=== PATIENT | female | born 1960 | race Caucasian/White ===

== ENCOUNTER 2020-08-18 14:13 | Outpatient (REF) | payer OTHER, SELFPAY ==
--- NOTE | 2020-08-18 | MM_ITS ---
EXAMINATION: MM SCREENING DIGITAL BREAST TOMOSYNTHESIS, BILATERAL CLINICAL INFORMATION: Screening. Asymptomatic. The lifetime risk of breast cancer based on the Tyrer-Cuzick Model is 9%. COMPARISON: Mammography: 05/15/2018, 07/17/2015 TECHNIQUE: Digital breast tomosynthesis is performed in both the craniocaudal and mediolateral oblique views along with computer-aided detection (CAD). Synthesized 2D images are generated from the tomosynthesis. FINDINGS: There are scattered areas of fibroglandular density (ACR BI-RADS breast composition Category b). There are no significant masses, abnormal calcifications, or other abnormalities. Parenchymal pattern is similar to prior studies. No significant changes. Skin contours are smooth. IMPRESSION: No mammographic evidence of malignancy. ASSESSMENT: BI-RADS 1: Negative RECOMMENDATION: Routine annual mammography screening. This patient's information was entered into a reminder system with a target due date for their next mammogram.
== END 2020-08-18 14:14 | disposition home or self-care (01) ==
LOC: HO.MAMMO 14:13
PROVIDERS: PCP Family Medicine; Visit Provider Family Medicine
DX: Z12.31 Encounter for screening mammogram for malignant neoplasm of breast (principal)
CPT/HCPCS: 77063; 77067

== ENCOUNTER 2020-10-19 14:29 | Outpatient (REF) | payer OTHER, SELFPAY ==
[2020-10-19 15:20] LABS: COVID-19 Test Negative (Negative)
== END 2020-10-19 14:30 | disposition home or self-care (01) ==
LOC: HO.LAB 14:29
PROVIDERS: Visit Provider Internal Medicine
DX: Z20.828 Contact with and (suspected) exposure to other viral communicable diseases (principal)
CPT/HCPCS: 87635; C9803

== ENCOUNTER 2020-11-19 15:15 | Outpatient (REF) | payer OTHER, SELFPAY ==
[2020-11-19 15:50] LABS: COVID-19 Test Negative (Negative); IDNOW Serial# 55D5AD1C
== END 2020-11-19 15:16 | disposition home or self-care (01) ==
LOC: HO.LAB 15:15
PROVIDERS: Visit Provider Internal Medicine
DX: Z20.822 Contact with and (suspected) exposure to COVID-19 (principal)
CPT/HCPCS: 36415; 87635; C9803

== ENCOUNTER 2021-07-27 14:13 | Outpatient (REF) | payer OTHER, SELFPAY ==
--- NOTE | ~2021-07-27 | XR_ITS ---
EXAMINATION: XR LUMBOSACRAL SPINE CLINICAL INFORMATION: Contusion, back pain COMPARISON: None TECHNIQUE: Three views of the lumbosacral spine. FINDINGS: There is normal lumbar segmentation with 5 nonrib-bearing lumbar vertebrae and normal lumbar lordosis. There is accentuated superior endplate concavity at L3 of indeterminate age. There is often associated with osteopenia and endplate softening. Otherwise, there is no vertebral compression, no destructive process or spondylolisthesis. There are degenerative disc changes greatest at T11-T12, L1-L2, and L5-S1. There is facet degeneration greatest L4-S1. The SI joints and visualized sacrum are unremarkable. XR/XR lumbar spine 2-3V IMPRESSION: 1. Accentuated superior plate concavity L3 of indeterminate age. This may be related to chronic endplate softening in the setting of osteopenia. Otherwise no vertebral compression, spondylolisthesis, destructive process. 2. Degenerative disc changes greatest at T11-T12, L1-L2, and L5-S1. Facet degeneration greatest L4-S1.
== END 2021-07-27 14:14 | disposition home or self-care (01) ==
LOC: HO.HMGCX 14:13
PROVIDERS: PCP Family Medicine; Visit Provider Internal Medicine
DX: Z13.89 Encounter for screening for other disorder (principal)
CPT/HCPCS: 72100

== ENCOUNTER 2021-10-04 14:00 | Outpatient (RCR) | payer OTHER, SELFPAY ==
--- NOTE | 2021-08-12 20:31 | MHC.PT.EP ---
[facility] [place] Office [place] Office [place] Office [address] [place] [address] [phone] F: [phone] F: [phone] F: [phone] F: [phone] Physical Therapy Plan of Care Date of Evaluation: Date of Surgery: Diagnosis: Contusion of back wall of thorax. 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 Pt is deemed an appropriate candidate to receive skilled PT services in order to address her physical impairments to improve her functional ability. NOTE: Pt has unrelenting pain which is present at rest as well as + R percussion test; MD office will be consulted on possible US to rule out kidney issue; reports no change of BB activity. Frequency and Duration: The patient will be seen 2 x / wk x 5 wks. Short Term Goals: Initiate HEP. improve baseline pain with activity to < 5/10, initial 8/10. Penitentiary Goals: Pt will report sitting does not cause me pain ; initial: pain prevents me from sitting > 1 hour . Pt will be able to walk without pain; initial: pain prevents me from walking long distances . I with HEP. Treatment Plan: Modalities to reduce pain, spasms and effusion. Manual therapy to restore motion and function. Therapeutic exercise to improve strength and flexibility. Neuromuscular re-education for posture and balance. Therapeutic activities to return to functional activities of daily living. Electronically signed by: Mitesh Stevens PT. Please sign and return to therapist. Thank you for your referral.
--- NOTE | 2021-10-04 15:10 | MHC.PT.DC ---
[facility] [place] Office [place] Office [place] Office [address] [place] [address] [phone] F: [phone] F: [phone] F: [phone] F: [phone] Physical Therapy Discharge Report Diagnosis: Contusion of back wall of thorax. Date of Surgery: Date of Evaluation: 08/12/21 Date of Discharge: Treatments to Date: 9 Cancellations to Date: No Shows to Date: Discharge Status: Discharge Summary: Puja has been an active participant in her therapy in and out of the clinic. Though she persists with some LBP which is related to activity she has met all of her therapeutic goals, is I with her home program, and in agreement with DC at this time. Electronically signed by: Please sign and return to therapist. Thank you for your referral.
== END 2021-10-04 15:11 | disposition home or self-care (01) ==
LOC: HO.PTCHIC 14:00
PROVIDERS: PCP Family Medicine; Visit Provider Internal Medicine
DX: S20.229D Contusion of unspecified back wall of thorax, subsequent encounter (principal)
CPT/HCPCS: 97110; 97140; 97161; 97530

== ENCOUNTER 2022-11-01 15:17 | Outpatient (REF) | payer OTHER, SELFPAY ==
--- NOTE | ~2022-11-01 | MM_ITS ---
EXAMINATION: MM SCREENING DIGITAL BREAST TOMOSYNTHESIS, BILATERAL CLINICAL INFORMATION: Screening. Asymptomatic. The lifetime risk of breast cancer based on the Tyrer-Cuzick Model is 7%. COMPARISON: Mammography: 08/18/2020, 05/15/2018, 07/17/2015 TECHNIQUE: Digital breast tomosynthesis is performed in both the craniocaudal and mediolateral oblique views along with computer-aided detection (CAD). Synthesized 2D images are generated from the tomosynthesis. FINDINGS: There are scattered areas of fibroglandular density (ACR BI-RADS breast composition Category b). There are no significant masses, abnormal calcifications, or other abnormalities. Parenchymal pattern is similar to prior studies. There is no developing density or architectural abnormality. The axilla and skin contours are unremarkable. No significant changes. MM/MM tomosynthesis screening BI IMPRESSION: No mammographic evidence of malignancy. ASSESSMENT: BI-RADS 1: Negative RECOMMENDATION: Routine annual mammography screening. This patient's information was entered into a reminder system with a target due date for their next mammogram.
== END 2022-11-01 15:18 | disposition home or self-care (01) ==
LOC: HO.MAMMO 15:17
PROVIDERS: PCP Family Medicine; Visit Provider Family Medicine
DX: Z12.31 Encounter for screening mammogram for malignant neoplasm of breast (principal)
CPT/HCPCS: 77063; 77067

== ENCOUNTER 2023-01-18 07:40 | Outpatient (REF) | payer OTHER, SELFPAY ==
--- NOTE | ~2023-01-18 | XR_ITS ---
EXAMINATION: XR knee standing BI, XR knee RT 2V CLINICAL INFORMATION: Reason for Exam M25.561 - Pain in right knee COMPARISON: Right knee radiographs 12/05/2019 and left knee radiographs 12/05/2019 TECHNIQUE: Two views of the right knee and one view of the bilateral knees standing. FINDINGS: No acute fracture or dislocation. Mild degenerative changes of the knee with spurring of the tibial spines and small right medial and patellofemoral and left lateral compartment osteophytes, which on the right may be minimally progressed from prior. Small right suprapatellar joint effusion. XR/XR knee RT 2V IMPRESSION: Mild degenerative changes of the knees, on the right minimally progressed from prior. Small right suprapatellar joint effusion.
--- NOTE | ~2023-01-18 | XR_ITS ---
EXAMINATION: XR knee standing BI, XR knee RT 2V CLINICAL INFORMATION: Reason for Exam M25.561 - Pain in right knee COMPARISON: Right knee radiographs 12/05/2019 and left knee radiographs 12/05/2019 TECHNIQUE: Two views of the right knee and one view of the bilateral knees standing. FINDINGS: No acute fracture or dislocation. Mild degenerative changes of the knee with spurring of the tibial spines and small right medial and patellofemoral and left lateral compartment osteophytes, which on the right may be minimally progressed from prior. Small right suprapatellar joint effusion. XR/XR knee standing BI IMPRESSION: Mild degenerative changes of the knees, on the right minimally progressed from prior. Small right suprapatellar joint effusion.
== END 2023-01-18 07:41 | disposition home or self-care (01) ==
LOC: HO.HOSX 07:40
PROVIDERS: Visit Provider Physician Assistant
DX: M17.11 Unilateral primary osteoarthritis, right knee (principal)
CPT/HCPCS: 20610; 73560; 73565; J1040

== ENCOUNTER → 2023-02-01 14:52 | Outpatient (REF) | payer OTHER, SELFPAY ==
--- NOTE | 2023-02-01 14:58 | CA_ITS ---
Transthoracic Echocardiogram Patient (Last, First, Middle): Puja Thomas, Gender: Female Date of : 1960 Age: 63 Procedure Date: 02/01/2023 Procedure Type: Transthoracic Echocardiogram Location: OP Height: 170.18 cm Weight: 80.74 kg BSA: 1.92 m2 Heart Rate: 66 bpm BP: 132 / 72 mmHg Knitter Wire Mesh: SB Referring MD: Issac Humphreys MD Finisher Screwdown: Dhruv Taveras MD Symptoms: I34.0 NON RHEU MITRAL VALVE INSUFF, Study Quality: Adequate ECG Rhythm: Frequent atrial premature beats Conclusions: - 1. Low normal LV systolic function with LVEF of 50-55% with impaired relaxation filling pattern 2. 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 Normal RV systolic pressure 4. No gross pericardial effusion Findings Left Ventricle Normal left ventricular cavity size. There is normal left ventricular wall thickness. The left ventricular systolic function is low normal. The visually estimated ejection fraction is between 50-55%. Spectral Doppler is indicative of an impaired relaxation filling pattern. E/E prime ratio is <8, consistent with normal filling pressures. Evidence suggests grade I (mild) diastolic dysfunction. Peak LS is -16.9%, which is mildly reduced. Right Ventricle Normal right ventricular cavity size and systolic function. Atria The left atrium is normal in size. There is lipomatous hypertrophy of the interatrial septum. There is no evidence of interatrial shunt. The right atrium is normal in size. Aortic Valve There is mild calcification of the aortic valve. There is mild thickening of the aortic valve. There is no aortic valve stenosis. There is no aortic valve regurgitation. Mitral Valve There is moderate anterior and mild posterior mitral leaflet thickening. There is bowing of the anterior mitral leaflet without obvious prolapse. There is mild mitral valve regurgitation. There is no mitral valve stenosis. Pulmonic Valve The pulmonic valve was not well visualized. Tricuspid Valve Normal tricuspid valve structure. There is trace tricuspid valve regurgitation. The right ventricular systolic pressure is normal. The right ventricular systolic pressure is 22 mmHg. Normal right atrial pressure. There is no evidence of pulmonary hypertension. Great Vessels All visible segments of the aorta are normal in size. The pulmonary artery was not well visualized. Venous The inferior vena cava is normal in size and collapses greater than 50% with inspiration. Pericardium/Pleural There is no evidence of pericardial effusion. Prior Study Comparison No significant change compared to prior study dated: 05/14/2018. LV systolic function appears to be depressed compared to prior study Measurements 2D Linear Measurements IVSd: 0.96 0.6-0.9/0.6-1.0 cm LVIDd: 4.92 3.9-5.3/4.2-5.9 cm LVIDd Index: 2.56 2.4-3.2/2.2-3.1 cm/m2 LVIDs: 3.30 2.0-3.6 cm LVPWd: 1.19 0.7-1.1 cm LA Diam: 3.90 2.7-3.8/3.0-4.0 cm LAIDs Index: 2.03 1.5-2.3 cm/m2 LV Mass: 243.05 67-162/88-224 g LV Mass Index: 126.59 43-95/49-115 g/m2 LVOT Diam: 2.40 3.0+(-)1.3 cm 2D Systolic Function EF 4C: 58.20 >55% EF 2C: 45.60 >55% Mitral Valve MV Pk E: 0.72 MV PK A: 0.75 MV Decel Time: 293.00 E/A: 1.00 E'Lateral: 7.18 E'Medial: 5.44 E/E' Med: 13.20 E/E' Lat: 10.00 PHT: 86.00 MVA PHT: 2.56 Decel Miner: 2.44 Aortic Valve AoV Pk Jose: 1.46 AoV Pk Grad: 9.00 RICHARD: 2.84 LVOT LVOT Pk Jose: 0.89 LVOT Mn Jose: 0.56 LVOT VTI: 0.21 LVOT Pk Grad: 3.00 LVOT Mn Grad: 2.00 LVOT Diam: 2.40 LVOT Area: 4.52 Diastolic Function MV Pk E: 0.72 MV Pk A: 0.75 E/A: 1.00 E'Medial: 5.44 E/E' Med: 13.20 E' Laterial: 7.18 E/E' Lat: 10.00 Right Ventricle TAPSE (mm): 23.00 TVS' Jose: 13.60 Tricuspid Valve TR Pk Jose: 2.18 TR Pk Grad: 19.00 RA Press: 3.00 RVSP: 22.00 Great Vessels Aorta Sinus of Valsalva: 3.40 2.0-3.5 cm Ao Asc: 3.40 2.1-3.4 cm Ao Arch: 2.80 Pulmonary Veins Pulm Vein S/D 2.30 Pulmonary Valve PV Pk Jose: 0.86 Peak PV Grad: 3.00 Updated in Other Vendor System with Status of Final Dhruv Taveras MD electronically signed on 02/02/2023 1:15:27 PM with status of Final
== END ==
LOC: HO.CARD 14:52
PROVIDERS: PCP Family Medicine; Visit Provider Internal Medicine Cardiovascular Disease
DX: I34.0 Nonrheumatic mitral (valve) insufficiency (principal)
CPT/HCPCS: 93306; 93356

== ENCOUNTER 2023-03-27 09:11 | Outpatient (REF) | payer OTHER, SELFPAY ==
--- NOTE | ~2023-03-27 | MR_ITS ---
EXAMINATION: MR KNEE WITHOUT CONTRAST, RIGHT CLINICAL INFORMATION: Primary osteoarthritis pain COMPARISON: X-ray 01/18/2023 TECHNIQUE: MRI of the knee without contrast was performed using routine sequences on a high-field scanner. FINDINGS: MENISCI: Medial Meniscus: Intact Lateral Meniscus: Irregular tear of the anterior horn and anterior root, with thin irregular meniscal tissue present. Irregular undersurface tearing in the body. Degeneration the posterior horn, with articular surface fraying. LIGAMENTS: Cruciate: Mucoid degeneration ACL. Intact PCL. Collateral: Intact EXTENSOR MECHANISM: Intact ARTICULAR CARTILAGE/BONE: Patellofemoral Compartment: Medial patellar facet areas of cartilage thinning with subchondral edema.. Patchy fissuring in the lateral patellar facet, subchondral edema. Medial trochlea cartilage thinning and fissuring. Marginal osteophytes. Medial Compartment: Small marginal osteophytes. Foci of cartilage thinning in the weightbearing compartment. Lateral Compartment: Marginal osteophytes. High-grade/full-thickness cartilage loss in the lateral aspect lateral tibial plateau, subchondral edema. Cartilage thinning in the articulating femoral condyle, mild subchondral edema. There is edema and fluid/cystic focus in the Hoffa's fat pad, of indeterminate etiology. Potentially, this could represent inflammatory process. There could be a component of ganglion cyst. JOINT FLUID AND BURSAE: Small-moderate joint effusion. Subcutaneous edema anteriorly. MR/MR knee RT wo con IMPRESSION: 1. Tear of the anterior horn, anterior root and body of the lateral meniscus. Posterior horn degeneration with articular surface fraying. 2. Mucoid degeneration ACL. 3. [id number] patellofemoral and moderate lateral compartment arthritis. Mild medial compartment arthritis. 4. Edema, fluid/cystic focus in the Hoffa's fat pad, of indeterminate etiology. Potentially, this could represent inflammatory process. There could be a component of ganglion cyst. 5. Small-moderate effusion.
== END 2023-03-27 09:12 | disposition home or self-care (01) ==
LOC: HO.MRI 09:11
PROVIDERS: PCP Family Medicine; Visit Provider Physician Assistant
DX: M17.11 Unilateral primary osteoarthritis, right knee (principal)
CPT/HCPCS: 73721

== ENCOUNTER → 2023-04-07 13:38 | Outpatient (BNVA) | payer OTHER, SELFPAY | PROVIDERS: PCP Family Medicine; Visit Provider Physician Assistant ==

== ENCOUNTER 2023-04-11 13:00 | Outpatient (RCR) | payer OTHER, SELFPAY ==
--- NOTE | 2023-02-24 09:21 | MHC.PT.EP ---
[facility] [place] Office [place] Office [place] Office [address] [place] [address] [phone] F: [phone] F: [phone] F: [phone] F: [phone] Physical Therapy Plan of Care Date of Evaluation: Date of Surgery: Diagnosis: This is a 63 yo female presenting to skilled PT with a script for OA of R knee. Assessment: This is a 63 yo female presenting to skilled PT with a script for OA of R knee. This patient is being followed by [facility] ortho. Patient reports pain and swelling ongoing for a few months now and this pain has been getting worse with time. Her symptoms are described as constant pain that are worse at night. For self treatment she has tried Advil, uses hot tub, ice and stretching. Patient also states that she enjoys being active with things that include hiking/bicycling, walking with her dogs, riding her horses. Her pain has been affecting her activity level but movement also helps. She had a cortisone injection at [facility] on 01/18/23 which was helpful for 2 weeks but pain has returned. Denies injury, numbness or tingling, hip or back pain. Pain increases sitting too long and transferring, walking, driving and stairs. She feels like her gait is effected. She has 2 different knee braces, a sleeve and a hinge brace that she wears when she is active. Assessment reveals pain that ranges from 5-8/10. Patient demos decreased knee and ankle ROM, strength of gluts and knee, increased swelling with TTP at patella and quad tendon, impaired gait and balance. Based on functional limitations, impaired QOL and pain tolerance patient is a good candidate for skilled PT 2x/wk for 4wks. Frequency and Duration: The patient will be seen 2x/wk for 4 wks Short Term Goals: In 3 wks: I in HEP Improve subjective pain by at least 25% Senior Living Goals: In 5 wks: I with HEP and self management of sx Pt will improve glut strength to 4/5 B Improve LEFS by at least 10 points Demo proper squatting and lifting techniques, proper sitting posture with lumbar roll and transfer techniques Treatment Plan: Modalities to reduce pain, spasms and effusion. Manual therapy to restore motion and function. Therapeutic exercise to improve strength and flexibility. Neuromuscular re-education for posture and balance. Therapeutic activities to return to functional activities of daily living. Electronically signed by: Sonia Lopez PT Please sign and return to therapist. Thank you for your referral.
--- NOTE | 2023-05-12 08:49 | MHC.PT.DC ---
[facility] [place] Office [place] Office [address] [place] [address] [phone] F: [phone] F: [phone] F: [phone] F: [phone] Physical Therapy Discharge Report Diagnosis: This is a 63 yo female presenting to skilled PT with a script for OA of R knee. Date of Surgery: Date of Evaluation: 02/23/23 Date of Discharge: 05/12/23 Treatments to Date: 10 Cancellations to Date: 0 No Shows to Date: 1 Discharge Status: Achieved Goals Improved Function Independent with HEP Recommend MD Follow-up Discharge Summary: 04/11: Pt with new POC of TKR vs injections at her last tx session. She has a sufficient HEP to continue on own, educated on options, ROM/strength continuation, use of KT and tens. She will seek out her options and continue HEP on her own for now. I kept her chart open for 30 days. She has improved ROM and swelling since eval and met most of her goals. At this point we have maxed out what we can do in PT and patient in agreement. DC to HEP. Electronically signed by: Sonia Lopez PT Please sign and return to therapist. Thank you for your referral.
== END 2023-05-12 08:49 | disposition home or self-care (01) ==
LOC: HO.PTCHIC 13:00
PROVIDERS: PCP Family Medicine; Visit Provider Physician Assistant
DX: M17.11 Unilateral primary osteoarthritis, right knee (principal)
CPT/HCPCS: 97014; 97110; 97140; 97161

== ENCOUNTER → 2023-04-17 14:37 | Outpatient (BNVA) | payer OTHER, SELFPAY | PROVIDERS: PCP Family Medicine; Visit Provider Orthopaedic Surgery ==

== ENCOUNTER 2023-05-10 13:52 | Outpatient (AMB) | payer OTHER, SELFPAY ==
--- NOTE | 2023-05-10 13:59 | MHC.OFFVIS ---
Intake Vital Signs 05/10/23 14:00 Height 5 ft 7 in Weight 180 lb BMI 28.2 Intake Visit Reasons: ov- RT knee Euflexxa injection #1 Intake Note: Puja 63 yr old female presents today for her right knee Euflexxa injection #1 Allergies No Known Allergies Allergy (Verified 05/10/23 14:01) HPI ov- RT knee Euflexxa injection #1 HPI Details 63-year-old female who returns to the office today for right knee Euflexxa gel injection #1. [facility] Social History Patient Tobacco Use Status: Never used Tobacco Current occupational status: employed Current occupation: [employer] of [employer] Review of Systems Const All systems reviewed & are unremarkable except as noted in HPI and below Physical Exam Vital Signs: BMI result Body Mass Index 28.2 Const General: cooperative, healthy appearing, comfortable, no acute distress, well developed and alert Orientation/consciousness: patient oriented x3 HEENT Head: Yes normal to inspection, Yes normocephalic and Yes atraumatic Eyes General: appearance normal, both eyes and all related structures Resp Effort & Inspection: normal respiratory effort and able to speak in complete sentences Cardio Rate: regular rate Peripheral pulses: Peripheral pulses 2+ throughout GI Palpation (GI): Soft to palpation Skin Lesions: no lesions Rashes: no rashes Neuro General: patient oriented x3 Extrem Other: Right knee skin intact, no erythema or joint effusion. Tenderness along the medial and lateral joint line. Full ROM with crepitus. Negative Roberto?s. No ligamentous laxity. NVI. Office Procedures Joint Injection/Drain Joint Injection/Drain Details: Hyaluronate Sodium [Euflexxa] ? 20 mg INTRAARTIC .STK-MED ONE Primary Site: right knee Prep: site was prepped using aseptic technique, ethochloride spray was applied and injection warnings given Injected: in the joint Approach Used: anterolateral Procedure: The patient tolerated the procedure well Coding 51884 - Glenohumeral/Tronchanteric Bursa/Intraarticular Procedure code (CPT) selection complete Results Reviewed Results Reviewed: 05/10/23 14:01 Hyaluronate Sodium [Euflexxa] 20 mg INTRAARTIC .STK-MED ONE Assessment & Plan Assessment & Plan (1) Osteoarthritis of right knee: Code(s): M17.11 - Unilateral primary osteoarthritis, right knee Plan We discussed options today which include Euflexxa gel injection. They did consent to move forward with the right knee Euflexxa gel injection #1, which was tolerated well. I recommended rest, ice and elevation and OTC anti-inflammatories PRN for discomfort. If symptoms persist or worsens, patient will contact the office, otherwise she will return in 1 week for Euflexxa gel injection #2. Patient Instructions: Scribed for Aroldo Arzate PA-C, by Jw Gomes ophthalmic medical technician, on 05/10/2023 at 1:45 PM EST. I, Aroldo Arzate PA-C, have personally reviewed and agree with the information entered by the scribe. Coding Level of Care Code Procedure Only Diagnoses Osteoarthritis of right knee M17.11 CPT Codes Coding - Joint 7: 43235 - Glenohumeral/Tronchanteric Bursa/Intraarticular ([id number])
[2023-05-10 14:00] VITALS: BMI 28.2
== END 2023-05-10 14:30 | disposition home or self-care (01) ==
PROVIDERS: PCP Family Medicine; Visit Provider Physician Assistant
DX: M17.11 Unilateral primary osteoarthritis, right knee (principal)
CPT/HCPCS: 20610

== ENCOUNTER → 2023-05-10 13:52 | Outpatient (BNVA) | payer OTHER, SELFPAY | PROVIDERS: PCP Family Medicine; Visit Provider Physician Assistant | DX: M17.11 Unilateral primary osteoarthritis, right knee (principal) | CPT/HCPCS: 20610; J7323 ==

== ENCOUNTER 2023-05-17 11:37 | Outpatient (AMB) | payer OTHER, SELFPAY ==
--- NOTE | 2023-05-17 11:46 | A.OFFVIS_ITS ---
Intake Vital Signs 05/17/23 11:49 Height 5 ft 7 in Weight 180 lb BMI 28.2 Intake Visit Reasons: ov- RT knee Euflexxa injection #2 Intake Note: Puja a 63 year old female who presents today for right knee Euflexxa injection #2. Allergies No Known Allergies Allergy (Verified 05/17/23 11:49) HPI ov- RT knee Euflexxa injection #2 HPI Details 63-year-old female who returns to the office today for right knee Euflexxa gel injection #2. She states the 1st injection worked well, she was able to go out hiking and had minimal pain. 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 [employer] Review of Systems Const All systems reviewed & are unremarkable except as noted in HPI and below Physical Exam Vital Signs: BMI result Body Mass Index 28.2 Const General: cooperative, healthy appearing, comfortable, no acute distress, well developed and alert Orientation/consciousness: patient oriented x3 HEENT Head: Yes normal to inspection, Yes normocephalic and Yes atraumatic Eyes General: appearance normal, both eyes and all related structures Resp Effort & Inspection: normal respiratory effort and able to speak in complete sentences Cardio Rate: regular rate Peripheral pulses: Peripheral pulses 2+ throughout GI Palpation (GI): Soft to palpation Skin Lesions: no lesions Rashes: no rashes Neuro General: patient oriented x3 Extrem Other: Right knee skin intact, no erythema or joint effusion. Tenderness along the medial and lateral joint line. Full ROM with crepitus. Negative Roberto?s. No ligamentous laxity. NVI. Office Procedures Joint Injection/Drain Joint Injection/Drain Primary Site: right knee Prep: site was prepped using aseptic technique, ethochloride spray was applied and injection warnings given Injected: in the joint Approach Used: anterolateral Procedure: The patient tolerated the procedure well Coding Procedure code (CPT) selection complete Results Reviewed Results Reviewed: 05/17/23 11:43 Hyaluronate Sodium [Euflexxa] 20 mg INTRAARTIC .STK-MED ONE Assessment & Plan Assessment & Plan (1) Osteoarthritis of right knee: Code(s): M17.11 - Unilateral primary osteoarthritis, right knee Plan We discussed options today which include Euflexxa gel injection. They did consent to move forward with the right knee Euflexxa gel injection #2, which was tolerated well. I recommended rest, ice and elevation and OTC anti- inflammatories PRN for discomfort. If symptoms persist or worsens over the next 6-8 weeks, patient will contact the office, otherwise she will return in 1 week for Euflexxa gel injection #3. Patient Instructions: Scribed for Aroldo Arzate PA-C, by Jw Gomes medical technologist clinical, on 05/17/2023 at 11:30 AM EST. I, Aroldo Arzate PA-C, have personally reviewed and agree with the information entered by the scribe. Coding Level of Care Code Procedure Only Diagnoses Osteoarthritis of right knee M17.11
[2023-05-17 11:49] VITALS: BMI 28.2
== END 2023-05-17 11:55 | disposition home or self-care (01) ==
PROVIDERS: PCP Family Medicine; Visit Provider Physician Assistant
DX: M17.11 Unilateral primary osteoarthritis, right knee (principal)
CPT/HCPCS: 20610

== ENCOUNTER → 2023-05-17 11:37 | Outpatient (BNVA) | payer OTHER, SELFPAY | PROVIDERS: PCP Family Medicine; Visit Provider Physician Assistant | DX: M17.11 Unilateral primary osteoarthritis, right knee (principal) | CPT/HCPCS: 20610; J7323 ==

== ENCOUNTER 2023-05-24 11:34 | Outpatient (AMB) | payer OTHER, SELFPAY ==
[2023-05-24 11:37] VITALS: BMI 28.2
--- NOTE | 2023-05-24 11:37 | MHC.OFFVIS ---
Intake Vital Signs 05/24/23 11:37 Height 5 ft 7 in Weight 180 lb BMI 28.2 Intake Visit Reasons: ov- RT knee Euflexxa injection # 3 Intake Note: Puja a 63 year old female presents today for a right knee Euflexxa injection #3. Allergies No Known Allergies Allergy (Verified 05/24/23 11:39) HPI ov- RT knee Euflexxa injection # 3 HPI Details 63-year-old female who returns to the office today for right knee Euflexxa gel injection #3. 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 [employer] Review of Systems Const All systems reviewed & are unremarkable except as noted in HPI and below Physical Exam Vital Signs: BMI result Body Mass Index 28.2 Const General: cooperative, healthy appearing, comfortable, no acute distress, well developed and alert Orientation/consciousness: patient oriented x3 HEENT Head: Yes normal to inspection, Yes normocephalic and Yes atraumatic Eyes General: appearance normal, both eyes and all related structures Resp Effort & Inspection: normal respiratory effort and able to speak in complete sentences Cardio Rate: regular rate Peripheral pulses: Peripheral pulses 2+ throughout GI Palpation (GI): Soft to palpation Skin Lesions: no lesions Rashes: no rashes Neuro General: patient oriented x3 Extrem Other: Right knee skin intact, no erythema or joint effusion. Tenderness along the medial and lateral joint line. Full ROM with crepitus. Negative Roberto?s. No ligamentous laxity. NVI. Office Procedures Joint Injection/Drain Joint Injection/Drain Details: Hyaluronate Sodium [Euflexxa] ? 20 mg INTRAARTIC .STK-MED ONE Primary Site: right knee Prep: site was prepped using aseptic technique, ethochloride spray was applied and injection warnings given Injected: in the joint Approach Used: anterolateral Procedure: The patient tolerated the procedure well and there was some relief with the local anesthesia Coding 40200 - Glenohumeral/Tronchanteric Bursa/Intraarticular Procedure code (CPT) selection complete Results Reviewed Results Reviewed: 05/24/23 11:32 Hyaluronate Sodium [Euflexxa] 20 mg INTRAARTIC .STK-MED ONE Assessment & Plan Assessment & Plan (1) Osteoarthritis of right knee: Code(s): M17.11 - Unilateral primary osteoarthritis, right knee Plan consent obtained to move forward with the right knee Euflexxa gel injection #3, which was tolerated well. I recommended rest, ice and elevation and OTC anti-inflammatories PRN for discomfort. If symptoms persist or worsens, patient will contact the office, otherwise she will follow-up in 6 weeks. Patient Instructions: Scribed for Aroldo Arzate PA-C, by Jw Gomes director medical science, on 05/24/2023 at 11:30 AM EST. IAroldo PA-C, have personally reviewed and agree with the information entered by the scribe. Coding Level of Care Code Procedure Only Diagnoses Osteoarthritis of right knee M17.11 CPT Codes Coding - Joint 7: 39118 - Glenohumeral/Tronchanteric Bursa/Intraarticular ([id number])
== END 2023-05-24 12:40 | disposition home or self-care (01) ==
PROVIDERS: PCP Family Medicine; Visit Provider Physician Assistant
DX: M17.11 Unilateral primary osteoarthritis, right knee (principal)
CPT/HCPCS: 20610

== ENCOUNTER → 2023-05-24 11:34 | Outpatient (BNVA) | payer OTHER, SELFPAY | PROVIDERS: PCP Family Medicine; Visit Provider Physician Assistant | DX: M17.11 Unilateral primary osteoarthritis, right knee (principal) | CPT/HCPCS: 20610; J7323 ==

== ENCOUNTER 2023-09-12 11:32 | Outpatient (AMB) | payer OTHER, SELFPAY ==
--- NOTE | 2023-09-12 11:34 | A.OFFVIS_ITS ---
Intake Vital Signs 09/12/23 11:38 Height 5 ft 7 in Weight 180 lb BMI 28.2 Intake Visit Reasons: OV-Right knee-discuss surgery? Intake Note: Puja a 63 year old female presents today with complaints of progressively worsening right knee pain and giving way. The patient describes her pain as sharp in nature. Most of the pain is along the medial aspect of her knee. Her symptoms have gotten worse over the last year in spite of continued non operative treatments. She has had both cortisone injections and viscosupplementation injections. The cortisone injections gave her no relief. The viscosupplementation injections gave her temporary relief. She has done physical therapy exercises which aggravated her pain. She has also tried Tylen ol and anti-inflammatory medicines which gave her minimal relief. 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 [employer] Physical Exam Vital Signs: BMI result Body Mass Index 28.2 Const Other: Well-nourished well-developed very friendly female awake alert and oriented x3 in no acute distress Extrem Other: Bilateral lower extremity examination shows good capillary refill, no skin lesions noted, normal sensation light touch Right knee examination shows a minimal effusion, minimal crepitus with range of motion, tenderness along her medial joint, positive Amarilys's test, no instability Results Reviewed Results Reviewed: Standing full weight-bearing x-rays of the patient's right knee show mild grade 1 diffuse joint space narrowing, no acute bony abnormalities MRI of the patient's right knee shows mild diffuse degenerative changes as well as a tear of the medial meniscus Assessment & Plan Assessment & Plan (1) Tear of medial meniscus of right knee: Code(s): S83.241A - Other tear of medial meniscus, current injury, right knee, initial encounter Plan: Ms. Thomas presents with right knee pain and mechanical symptoms due to early degenerative joint disease as well as a tear of her medial meniscus. I had a lengthy discussion with the patient regarding treatment options. The risks and benefits of right knee arthroscopic surgery versus right total knee replacement surgery were discussed at length with the patient. I do feel that based on the patient's mechanical symptoms and minimal degenerative changes that she would get significant relief from the arthroscopic procedure. The patient's agrees. She does understand that she may not get 100% relief of her symptoms standing on the severity of her degenerative changes. She will contact my office to pick a surgery date. She will follow-up as instructed. Feel free to call me at any time should questions regarding her orthopedic management arise. I spent 22 minutes in reviewing the patient's records and imaging studies, seeing the patient and documenting in the medical record. Coding Level of Care Code Est Pt Level 2 (44504) Diagnoses Tear of medial meniscus of right knee S83.241A
[2023-09-12 11:38] VITALS: BMI 28.2
== END 2023-09-12 12:01 | disposition home or self-care (01) ==
PROVIDERS: PCP Family Medicine; Visit Provider Orthopaedic Surgery
DX: S83.241A Other tear of medial meniscus, current injury, right knee, initial encounter (principal)
CPT/HCPCS: 99212

== ENCOUNTER → 2023-09-12 11:32 | Outpatient (BNVA) | payer OTHER, SELFPAY | PROVIDERS: PCP Family Medicine; Visit Provider Orthopaedic Surgery ==

== ENCOUNTER 2023-10-26 08:29 | Outpatient (AMB) | payer OTHER, SELFPAY ==
[2023-10-26 08:33] VITALS: BMI 28.2
--- NOTE | 2023-10-26 08:33 | A.OFFVIS_ITS ---
Intake Vital Signs 10/26/23 08:33 Height 5 ft 7 in Weight 180 lb BMI 28.2 Intake Visit Reasons: Pre Op Rt knee 11/03/23 DR Larsen Note: Puja is a 63 year old female who presents today for a pre op appointment of her right knee 11/03/23 DR. Luo a 63 year old female presents with complaints of progressively worsening right knee pain and giving way. The patient describes her pain as sharp in nature. Most of the pain is along the medial aspect of her knee. Her symptoms have gotten worse over the last year in spite of continued non operative treatments. She has had both cortisone injections and viscosupplementation injections. The cortisone injections gave her no relief. The viscosupplementation injections gave her temporary relief. She has done physical therapy exercises which aggravated her pain. She has also tried Tylenol and anti-inflammatory medicines which gave her minimal relief. 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 [employer] Physical Exam Vital Signs: BMI result Body Mass Index 28.2 Const Other: Well-nourished well-developed very friendly female awake alert and oriented x3 in no acute distress Lungs - clear to auscultation bilaterally with symmetric expansion Cardiovascular exam - regular rate and rhythm Abdominal exam - soft nontender nondistended Extrem Other: Bilateral lower extremity examination shows good capillary refill, no skin lesions noted, normal sensation light touch Right knee examination shows a minimal effusion, minimal crepitus with range of motion, tenderness along her medial joint line, positive Amarilys's test, no instability Results Reviewed Results Reviewed: Standing full weight-bearing x-rays of the patient's right knee show mild grade 1 diffuse joint space narrowing, no acute bony abnormalities MRI of the patient's right knee shows mild diffuse degenerative changes as well as a tear of the medial meniscus Assessment & Plan Assessment & Plan (1) Tear of medial meniscus of right knee: Code(s): S83.241A - Other tear of medial meniscus, current injury, right knee, initial encounter Plan Ms. Thomas presents with right knee pain and mechanical symptoms due to early degenerative joint disease as well as a tear of her medial meniscus. I had a lengthy discussion with the patient regarding treatment options. The risks and benefits of right knee arthroscopic surgery versus right total knee replacement surgery were discussed at length with the patient. I do feel that based on the patient's mechanical symptoms and minimal degenerative changes that she would get significant relief from the arthroscopic procedure. The patient's agrees. She does understand that she may not get 100% relief of her symptoms standing on the severity of her degenerative changes. The patient was given a prescription for oxycodone at her preoperative appointment. She will follow-up as instructed. Feel free to call me at any time should questions regarding her orthopedic management arise. I spent 22 minutes in reviewing the patient's records and imaging studies, seeing the patient and documenting in the medical record. Medications: New oxycodone Partial Fill upon patient request. 5 mg PO Q6H PRN 20 tabs 0RF pain Coding Level of Care Code Est Pt Level 2 (67860) Diagnoses Tear of medial meniscus of right knee S83.241A
== END 2023-10-26 08:54 | disposition home or self-care (01) ==
PROVIDERS: PCP Family Medicine; Visit Provider Orthopaedic Surgery
DX: S83.241A Other tear of medial meniscus, current injury, right knee, initial encounter (principal)
CPT/HCPCS: 99024

== ENCOUNTER → 2023-10-26 08:29 | Outpatient (BNVA) | payer OTHER, SELFPAY | PROVIDERS: PCP Family Medicine; Visit Provider Orthopaedic Surgery ==

== ENCOUNTER 2023-11-03 06:15 | Day surgery (SDC) | payer OTHER, SELFPAY ==
[2023-10-31 14:39] VITALS: BMI 28.2
--- NOTE | 2023-11-02 09:07 | HO.ANESPROP2 ---
Documented by User: Qian Morgan NP 11/02/23 09:07 HPI - Anesthesia Eval Consult details Narrative: 63yo F for Right Knee Arthroscopy, partial medial meniscectomy, possible lateral meniscectomy [facility] Active Problems Active Problems: All Active Problems (Updated 10/31/23 @ 14:32 by Marsha Monreal RN) Tear of medial meniscus of right knee (Acute) Osteoarthritis of right knee (Acute) Contusion, back (Acute) Past Medical History Medical History Sacral fracture Rheumatic fever Osteoarthritis Surgical History Surgical History Surgical history unknown Social History Social History Patient Tobacco Use Status: Never used Tobacco Use of substances other than those prescribed or required for medical reasons: No Are you DNR?: No Advance Directives: No Advance Directives Information Provided: Yes Current occupational status: employed 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[employer] Allergies Allergy/AdvReac Type Severity Reaction Status Date / Time No Known Allergies Allergy Verified 10/26/23 08:36 Exam Height,Weight and Vital Signs: Height 5 ft 7 in Weight 81.647 kg Assessment and Plan Assessment Anesthesia Assessment: Chart Reviewed Documented by User: Irma Padilla MD 11/03/23 07:26 [facility] Past Medical History Medical History Sacral fracture Rheumatic fever Osteoarthritis Family History Family history of problems with anesthesia: No Surgical History Surgical History Surgical history unknown History of Problems with Anesthesia: No Social History Social History Patient Tobacco Use Status: Never used Tobacco Use of substances other than those prescribed or required for medical reasons: No Are you DNR?: No Advance Directives: No Advance Directives Information Provided: Yes Current occupational status: employed 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[employer] Allergies Allergy/AdvReac Type Severity Reaction Status Date / Time No Known Allergies Allergy Verified 10/26/23 08:36 Exam Airway Mallampati Class: II TM Dist: >3cm Neck ROM: Full Heart: rrr Lungs: cta Assessment and Plan Assessment Anesthesia Assessment: Anesthesia Plan Discussed Final Anesthetic Review Family History of Problems with Anesthesia: No History of Problems with Anesthesia: No NPO: Yes ASA Class: I Final Preanesthetic Review: No Changes in Pt Med Stat, Meds/Allgs Chart Reviewed, Consent Obtained/Reviewed and Anes Risks/Benef Reviewed Patient Risk: Low Procedure Risk: Low Anesthetic Plan Anesthetic Plan: GA Disposition: Standard PACU
[2023-11-03 06:22] VITALS: BMI 30.7
[2023-11-03 06:32] VITALS: BP 144/80; PULSE 85; RESP 16; TEMP 36.8; O2SAT 97
[2023-11-03 08:30] VITALS: BP 91/53; PULSE 76; RESP 12; TEMP 36.2; O2SAT 95
--- NOTE | 2023-11-03 08:33 | PM.OP ---
Brief Operative Note Date of Service: 11/03/23 Pre-op diagnosis: Right knee medial meniscus tear, right knee lateral meniscus tear Post-op diagnosis: same Procedure: Right knee diagnostic arthroscopy with right knee arthroscopic partial medial and lateral meniscectomies, right knee arthroscopic chondroplasty of the undersurface of the patella as well as the medial femoral condyle, right knee arthroscopic plica excision Implants: none Surgeon: Moe Cutler MD Anesthesia: GLMA Was an Parcel Post Clerk used for this Procedure?: No Estimated blood loss (mL): 10 Pathology: none sent Condition: stable Disposition: PACU
--- NOTE | 2023-11-03 08:34 | W.PM.OPN ---
Operative Note Operative Note Date of Service: 11/03/23 Narrative: After the patient was identified as Puja Thomas and her right knee was initialed by myself they were brought to the operating room where general anesthesia was induced by the anesthesiologist in routine fashion. The patient was given 2 g of IV Ancef for infection prophylaxis. A formal time-out was completed. The patient's right lower extremity was prepped and draped in sterile fashion. Marcaine with epinephrine was injected into the planned incision sites as well as their right knee joint. A # 11 scalpel blade was used to make an anterolateral portal 1 cm proximal to the joint line and 1 cm lateral to the patellar tendon. Blunt trocar technique was used into the suprapatellar pouch with the knee in extension. Diagnostic arthroscopy showed multiple bands of thickened plica which would be excised at the end of the procedure. There were no loose bodies or abnormalities found in either the medial or lateral gutters. There were diffuse grade 2 degenerative changes of the undersurface of the patella as well as grades 2 and 3 degenerative changes of the trochlear groove. The patient's knee was flexed to 45 degrees and a valgus force was placed upon it. The medial compartment was entered. An anteromedial portal was made 1 cm proximal to the joint line and 1 cm medial to the patellar tendon. Probing of the medial meniscus showed a radial tear of the anterior horn. A partial medial meniscectomy was performed using the arthroscopic shaver. Following the partial meniscectomy the remainder of the meniscus tissue was stable. There were diffuse grade 2 degenerative changes of the medial femoral condyle as well as diffuse grade 2 degenerative changes of the medial tibial plateau. The articular surface of the medial femoral condyle was made smooth using the arthroscopic shaver. The articular surface of the medial tibial plateau was already smooth so no chondroplasty was indicated. The patient's knee was then placed into a neutral position. There was no injury to the anterior cruciate ligament. The patient's knee was then placed into the figure of 4 position and the lateral compartment was entered. Probing of the lateral meniscus showed a radial tear of the anterior horn. A partial lateral meniscectomy was performed using the arthroscopic shaver. Following the partial lateral meniscectomy the remainder of the meniscus tissue was stable. There were minimal degenerative changes of the lateral femoral condyle and lateral tibial plateau. The patient's knee was once again brought into extension and the suprapatellar pouch was entered. The arthroscopic shaver and the ArthroCare Wand were used to excise the thickened bands of plica. The undersurface of the patella was then made smooth using the arthroscopic shaver. The articular surface of the trochlear groove was already smooth so no chondroplasty was indicated. The knee joint was irrigated and then drained. All arthroscopic instruments were removed. The 2 portals were closed with 3-0 nylon interrupted suture. The knee joint was injected with Marcaine. Dry sterile dressing and Young bandages were placed over the patient's knee. The patient was woken and expand the operating room. They were transferred to the recovery room in stable condition.
[2023-11-03 08:35] VITALS: BP 107/62; PULSE 69; RESP 16; O2SAT 95
[2023-11-03 08:40] VITALS: BP 118/70; PULSE 68; RESP 16; O2SAT 96
[2023-11-03 08:45] VITALS: BP 125/68; PULSE 62; RESP 16; O2SAT 98
[2023-11-03 09:00] VITALS: BP 131/75; PULSE 62; RESP 18; TEMP 36.4; O2SAT 98
== END 2023-11-03 09:37 | disposition home or self-care (01) ==
PROVIDERS: PCP Family Medicine; Visit Provider Orthopaedic Surgery
PROC: (CPT 29870; principal; 2023-11-03 07:30)
DX: S83.241A Other tear of medial meniscus, current injury, right knee, initial encounter (principal); S83.281A Other tear of lateral meniscus, current injury, right knee, initial encounter; X58.XXXA Exposure to other specified factors, initial encounter; Y93.9 Activity, unspecified; Y92.9 Unspecified place or not applicable; Y99.9 Unspecified external cause status; M67.51 Plica syndrome, right knee; M25.361 Other instability, right knee; M17.11 Unilateral primary osteoarthritis, right knee
CPT/HCPCS: 29880; J0131; J0171; J0690; J0696; J1100; J2405; J2704; J2795; J3010

== ENCOUNTER → 2023-11-03 06:15 | Outpatient (BNV) | payer OTHER, SELFPAY | PROVIDERS: PCP Family Medicine; Visit Provider Orthopaedic Surgery | DX: S83.241A Other tear of medial meniscus, current injury, right knee, initial encounter (principal); S83.281A Other tear of lateral meniscus, current injury, right knee, initial encounter | CPT/HCPCS: 29880 ==

== ENCOUNTER 2023-11-16 11:36 | Outpatient (AMB) | payer OTHER, SELFPAY ==
--- NOTE | 2023-11-16 11:42 | MHC.OFFVIS ---
Intake Intake Visit Reasons: PO Rt knee 11/03/23 Intake Note: Puja a 63 year old female presents today for a post operative right knee 11/03/23 . Patient reports she is doing well, states minimal pain. She mentions on Monday night she had a low grade temperature of 101 degrees. Allergies No Known Allergies Allergy (Verified 11/16/23 11:46) HPI PO Rt knee 11/03/23 HPI Details 63-year-old female who returns to the office today for post-op right knee , 11/03/[address] Cutler. She continues to have minimal pain in her knee and is doing well overall. She reports she had a low-grade temperature of 101 degrees on the night of 11/01/23. She has no other concerns today. 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 No erythema or drainage. ROM is 0-95 degrees. Calf supple, nontender. NVI. Results Reviewed Results Reviewed: Brief Operative Note Date of Service: 11/03/23 Pre-op diagnosis: Right knee medial meniscus tear, right knee lateral meniscus tear Post-op diagnosis: same Procedure: Right knee diagnostic arthroscopy with right knee arthroscopic partial medial and lateral meniscectomies, right knee arthroscopic chondroplasty of the undersurface of the patella as well as the medial femoral condyle, right knee arthroscopic plica excision Implants: none : Moe Cutler MD Assessment & Plan Assessment & Plan (1) S/P right knee arthroscopy: Code(s): Z98.890 - Other specified postprocedural states (2) Osteoarthritis of right knee: Code(s): M17.11 - Unilateral primary osteoarthritis, right knee Qualifiers: Osteoarthritis type: primary Qualified Code(s): M17.11 - Unilateral primary osteoarthritis, right knee Plan Sutures removed today, steri strips applied. She will begin a course of physical therapy to work on ROM and quad strength. I did recommend she avoids high impact activities and deep bending, twisting, squatting, or pivoting for the next 4-6 weeks. I would like to see her back in [address] Cutler, sooner if needed. Orders: Orders PT Evaluation and Treatment Today M17.11 - Unilateral primary osteoarthritis, right knee, S83.241A - Other tear of medial meniscus, current injury, right knee, initial encounter Patient Instructions: Scribed for Aroldo Arzate PA-C, by Jw Gomes medical record transcriber, on 11/16/2023 at 11:30 AM EST. I, Aroldo Arzate PA-C, have personally reviewed and agree with the information entered by the scribe. Coding Level of Care Code Global (50835) Diagnoses S/P right knee arthroscopy Z98.890 Primary osteoarthritis of right knee M17.11 Osteoarthritis type: primary
== END 2023-11-16 12:02 | disposition home or self-care (01) ==
PROVIDERS: PCP Family Medicine; Visit Provider Physician Assistant
DX: Z98.890 Other specified postprocedural states (principal); M17.11 Unilateral primary osteoarthritis, right knee
CPT/HCPCS: 99024

== ENCOUNTER → 2023-11-16 11:36 | Outpatient (BNVA) | payer OTHER, SELFPAY | PROVIDERS: PCP Family Medicine; Visit Provider Physician Assistant ==

== ENCOUNTER 2023-11-20 14:57 | Emergency (ER) | payer OTHER, SELFPAY ==
--- NOTE | ~2023-11-20 | US_ITS ---
EXAMINATION: US VENOUS ULTRASOUND WITH DOPPLER LOWER EXTREMITY, LEFT CLINICAL INFORMATION: Edema COMPARISON: None available. TECHNIQUE: Ultrasound of the deep veins is performed from the hip to the calf with compression sonography and color and pulse Doppler assessment. Spectral analysis with color-flow imaging is performed. FINDINGS: There is occlusive or near occlusive thrombus extending from the left mid femoral vein through the popliteal vein. There is additional occlusive thrombus in the mid posterior tibial veins and proximal anterior tibial veins. A 1.9 x 0.6 x 0.82 m cyst in the popliteal fossa which may reflect a Tirado's cyst. The contralateral right common femoral vein is patent with normal waveforms. US/US venous duplex LE LT IMPRESSION: 1. There is occlusive or near occlusive thrombus extending from the left mid femoral vein through the popliteal vein. There is additional occlusive thrombus in the mid posterior tibial veins and proximal anterior tibial veins. 2. A 1.9 cm cyst in the popliteal fossa which may reflect a Tirado's cyst. These critical results were discussed with Dr. Lyman by telephone at 11/20/2023 5:53 PM and it was ascertained that the content and urgency of the report was understood at the time of direct communication.
[2023-11-20 15:12] VITALS: BP 178/56; PULSE 88; RESP 18; TEMP 36.7; O2SAT 97; BMI 29.1
--- NOTE | 2023-11-20 15:13 | ED_ITS ---
HPI - General Adult General Chief complaint: Extremity Injury, Lower Stated complaint: Swollen L leg needs ultrasound Time Seen by Provider: 11/20/23 16:43 Source: patient Mode of arrival: ambulatory Limitations: no limitations History of Present Illness HPI narrative: Patient is a 63-year-old female with history of right knee arthroscopy 2 weeks ago presenting to the emergency department with complaint left lower leg swelling and redness since this morning. States she has been taking Tylenol and ibuprofen following her procedure, has not been taking aspirin. Reports history of DVT many years ago, was anticoagulated for 1 year but has not been anticoagulated since. Denies any chest pain, palpitations, shortness of breath. Denies any cancer history, denies any history of renal disease. Also reports tick bite to back of neck 3 weeks ago, does not feel tick was on for greater than 24 hours but is unsure. Denies fevers/chills/body aches. complaint: Left lower leg swelling Onset (ago): hour(s) Location: left and lower extremity Quality: aching Associated symptoms: denies other symptoms Treatments prior to arrival: none Related Data Previous Rx's Medication Instructions Recorded apixaban 5 mg (74 tabs) tablets in 5 mg PO BID #74 ea 11/20/23 a dose pack (Eliquis DVT-PE Treat 30D Start) Allergies Allergy/AdvReac Type Severity Reaction Status Date / Time No Known Allergies Allergy Verified 11/20/23 15:12 Review of Systems 2 Review of Systems: As per HPI. Yes all other systems are reviewed and are negative Constitutional: Constitutional: Reports as per HPI [facility] Past Medical History Medical History Sacral fracture Rheumatic fever Osteoarthritis Surgical History Surgical history unknown Social History Social History Alcohol intake: current Alcohol type: beer Patient Tobacco Use Status: Never used Tobacco Smoked in Last 30 Days: No Use of substances other than those prescribed or required for medical reasons: No Advance Directives: No Advance Directives Information Provided: No Current occupational status: employed Current occupation: [employer] of [employer] Physical Exam ED Vital Signs: Vital Signs - 24 hr 11/20/23 15:12 11/20/23 19:22 Temperature 98.0 F 97.7 F Pulse Rate 88 70 Respiratory Rate 18 16 Blood Pressure 178/56 H 148/80 H Pulse Oximetry 97 98 Oxygen Delivery Method Room Air Room Air BMI result Body Mass Index 29.1 Vital signs have been reviewed and appear to be correct. Blood pressure elevated. Heart rate normal. Respiratory rate normal. Temperature normal. Oxygen saturation normal. Const General: cooperative, healthy appearing and no acute distress Orientation/consciousness: oriented to person, oriented to place, oriented to time and patient oriented x3 Limitations: no limitations HENMT Head: Yes normocephalic and Yes atraumatic Ears: external ears normal General nose exam: Normal external nose present Face and sinus: Yes face symmetric Mouth: oropharynx normal and moist mucous membranes Throat: Yes uvula midline Eyes Pupils: Equal, round and reactive pupils present Neck Neck: Yes normal visual inspection and Yes supple Resp Effort & Inspection: normal respiratory effort and able to speak in complete sentences Auscultation: clear to auscultation bilaterally Cardio Rate: regular rate Rhythm: regular rhythm Heart sounds: S1 normal heart sound present and S2 normal heart sound present GI Palpation (GI): Soft to palpation and nontender Auscultation: normoactive bowel sounds General: Yes no CVA tenderness Back/Spine/Pelvis Back: no CVA tenderness Skin General skin exam: elasticity normal and turgor normal Neuro General: oriented to person, oriented to place, oriented to time, patient oriented x3, moves all extremities, no focal motor deficits and CN's II-XI intact bilaterally Cranial nerves: Yes Equal, round and reactive pupils present Cognition (Neuro): normal cognition Extrem General: Yes full ROM Left lower extremity: lower leg Details: erythema Location: of the proximal lower leg Location: posteriorly, tenderness Location: of the posterior calf, pitting edema Details: 1+ and warmth Location: of the proximal lower leg and foot Details: vascular exam Details: dorsalis pedis pulse present and posterior tibial pulse present Psych Mental Status: mental status grossly normal Affect: normal affect Thought process: Normal thought process present Course Course Course Narrative: RME performed by Olga Valencia PA-C. Patient is a 63 year old assigned female at presenting to the emergency department with left lower leg swelling. Detailed physical exam and review of systems are deferred to the car salter. Labs and imaging ordered. Patient placed back in the waiting room pending room availability and results. Reevaluation(s) Reevaluation #1: Received critical results of ultrasound. Patient not in department at this time, reportedly in ultrasound. Time: 18:10 Medical Decision Making Medical Decision Making [facility] Narrative: Patient is a 63-year-old female with history of right knee arthroscopy 2 weeks ago presenting to the emergency department with complaint left lower leg swelling and redness since this morning. On exam patient is awake, A+Ox3, VS WNL, afebrile, normal neurological exam without focal deficits, physical exam findings as above. Given reported symptoms and physical exam findings, initial differential includes DVT, cellulitis. Ultrasound notable for occlusive vs near occlusive thrombus from left mid femoral vein through the popliteal, additional occlusive thrombus in mid posterior tibial veins and proximal anterior tibial veins, 1.9 cm cyst in popliteal fossa. My interpretation is in agreement with the radiologist's interpretation. Case discussed with Dr. Glover who recommends treatment with Eliquis at this time. Labs pending as patient has been in ultrasound. Patient signed out to LORNA Espinoza pending lab results. 1937 - labs unremarkable. Patient discharged. Differential Diagnosis Differential Diagnoses: The differential diagnosis associated with the presentation includes As per [facility] Admission/Observation Consideration of admission/observation: Escalation of care including admission/observation considered Consult Healthcare Provider Management of the patient was discussed with: Javascript Web Developer (Dr. Glover) Lab Data 11/20/23 19:07 11/20/23 19:07 Labs: Lab Results 11/20/23 Range/Units 19:07 WBC 4.8 (4.8-10.8) X10*3/uL RBC 4.55 (4.20-5.50) X10*6/uL Hgb 13.8 (12.0-16.0) g/dl Hct 40.1 (37.0-47.0) % MCV 88.1 (80.0-98.0) fL MCH 30.3 (27.0-33.0) pg MCHC 34.4 (31.0-35.0) g/dl RDW 12.2 (11.0-16.0) % Plt Count 183 (160-400) X10*3/uL MPV 9.2 L (9.4-12.3) fL Immature Gran % (Auto) 0.2 (0.0-0.4) % Neut % (Auto) 62.5 (45-73) % Lymph % (Auto) 26.7 (20-40) % Placer % (Auto) 8.3 (2-11) % Eos % (Auto) 1.7 (0-4) % Baso % (Auto) 0.6 (0-2) % Lymph # (Auto) 1.3 (1.2-4.9) X10*3/uL Placer # (Auto) 0.4 (0.1-1.2) X10*3/uL Eos # (Auto) 0.1 (0.0-0.4) X10*3/uL Baso # (Auto) 0.0 (0.0-0.2) X10*3/uL Abs Immat Gran (auto) 0.01 (0.00-0.03) X10*3/uL Absolute Neuts (auto) 3.0 (2.0-8.3) x10*3/uL Absolute Nucleated RBC 0.000 (0.0-0.012) X10*3/uL Nucleated RBC % (auto) 0.0 (0.0-0.2) /100WBC PT 11.7 (11.1-13.3) SEC INR 1.0 (0.9-1.1) APTT 30.5 (26.0-36.4) SEC Sodium 142 (135-145) mmol/L Potassium 3.9 (3.3-5.1) mmol/L Chloride 105 (96-108) mmol/L Carbon Dioxide 26 (22-29) mmol/L Anion Gap 15 (12-20) BUN 8 L (9-16) mg/dL Creatinine 0.79 (0.5-1.4) mg/dL Estim Creat Clear Calc 81.2 Estimated GFR > 60 Random Glucose 97 (60-115) mg/dL Calcium 9.5 (8.4-10.2) mg/dL Magnesium 2.2 (1.6-2.6) mg/dL Total Bilirubin 0.6 (0.0-1.0) mg/dL AST 21 (5-31) U/L ALT 23 (0-31) U/L Alkaline Phosphatase 125 H (39-117) U/L Total Protein 8.1 H (6.5-8.0) g/dL Albumin 4.0 (3.5-5.0) g/dL Independent Interpretation I performed an independent interpretation of an: Ultrasound Interpretation: occlusive vs near occlusive thrombus from left mid femoral vein through the popliteal, additional occlusive thrombus in mid posterior tibial veins and proximal anterior tibial veins, 1.9 cm cyst in popliteal fossa Radiology Impression Discussion of test interpretation with radiology: I have reviewed the radiologist's reading. Radiologist Impression: US/US venous duplex LE LT IMPRESSION: 1. There is occlusive or near occlusive thrombus extending from the left mid femoral vein through the popliteal vein. There is additional occlusive thrombus in the mid posterior tibial veins and proximal anterior tibial veins. 2. A 1.9 cm cyst in the popliteal fossa which may reflect a Tirado's cyst. These critical results were discussed with Dr. Lyman by telephone at 11/20/2023 5:53 PM and it was ascertained that the content and urgency of the report was understood at the time of direct communication. External Record Review External record reviewed: Inpatient record, Office record and Outpatient record Prescription Management I considered prescription management with: Other Discharge Plan Discharge Clinical Impression: Acute deep vein thrombosis (DVT) of left lower extremity Patient Disposition: Home, Self-Care Instructions: Apixaban (By mouth), Deep Vein Thrombosis (ED) Additional Instructions: You were evaluated in the emergency department today for left lower leg swelling. Your ultrasound showed evidence of multiple DVTs to your left leg. You are being started on Eliquis for this, please take this medication as prescribed. You should follow-up with your primary care provider within the next 2-3 days. You are being referred to vascular for further evaluation and management, please call their office to schedule an appointment. Return to the emergency department if you develop chest pain, palpitations, shortness of breath, increased pain or swelling to your leg, change of color to your leg or foot, or any other concerning symptoms. Prescriptions: New Eliquis DVT-PE Treat 30D Start 5 mg (74 tabs) tablets,dose pack 5 mg PO BID Qty: 74 0RF Rx Instructions: Take 10mg (2 tabs) twice daily (BID) for the first 7 days, then take 5mg twice daily (BID)
--- NOTE | 2023-11-20 17:16 | PC.NURSE ---
pt has not been in emc room 4 yet. awaiting pt to arrive.
--- NOTE | 2023-11-20 17:28 | PC.NURSE ---
called ultrasound- pt still in ultrasound exam.
--- NOTE | 2023-11-20 17:56 | PC.NURSE ---
remains in ultrasound
--- NOTE | 2023-11-20 18:19 | PC.NURSE ---
pt has not returned from exam yet
--- NOTE | 2023-11-20 18:25 | PC.NURSE ---
called ultrasound again to check in about pt's exam status- no answer. merrill no aware pt remains there. will draw blood on pt return- assistant superintendent for curriculum merrill aware
[2023-11-20 19:20] LABS: MANUAL DIFF FLAG NO
[2023-11-20 19:22] VITALS: BP 148/80; PULSE 70; RESP 16; TEMP 36.5; O2SAT 98
[2023-11-20 19:23] LABS: Basophils Percent Auto 0.6 % (0-2); Eosinophils Absolute Auto 0.1 X10*3/uL (0.0-0.4); Eosinophils Percent Auto 1.7 % (0-4); Hematocrit 40.1 % (37.0-47.0); Hemoglobin 13.8 g/dl (12.0-16.0); Imm Gran Abs Auto 0.01 X10*3/uL (0.00-0.03); Imm Gran Pct Auto 0.2 % (0.0-0.4); Lymphocytes Absolute Auto 1.3 X10*3/uL (1.2-4.9); Lymphocytes Percent Auto 26.7 % (20-40); Mean Corpuscular HGB Conc 34.4 g/dl (31.0-35.0); Mean Corpuscular Hemoglobin 30.3 pg (27.0-33.0); Mean Corpuscular Volume 88.1 fL (80.0-98.0); Mean Platelet Volume 9.2 fL (9.4-12.3); Monocytes Absolute Auto 0.4 X10*3/uL (0.1-1.2); Monocytes Percent Auto 8.3 % (2-11); Neutrophils Percent Auto 62.5 % (45-73); Platelet Count 183 X10*3/uL (160-400); Red Blood Count 4.55 X10*6/uL (4.20-5.50); Red Cell Distribution Width 12.2 % (11.0-16.0); White Blood Count 4.8 X10*3/uL (4.8-10.8)
[2023-11-20 19:31] LABS: Prothrombin Time 11.7 SEC (11.1-13.3)
[2023-11-20 19:33] LABS: Partial Thromboplastin Time 30.5 SEC (26.0-36.4)
[2023-11-20 19:36] LABS: Alanine Aminotransferase 23 U/L (0-31); Alkaline Phosphatase 125 U/L (39-117); Anion Gap 15 (12-20); Aspartate Amino Transferase 21 U/L (5-31); Bilirubin Total 0.6 mg/dL (0.0-1.0); Blood Urea Nitrogen 8 mg/dL (9-16); Calcium 9.5 mg/dL (8.4-10.2); Carbon Dioxide 26 mmol/L (22-29); Chloride 105 mmol/L (96-108); Creatinine Clr Calc Pharmacy 81.2; Estimated Glomerular Filt Rate > 60; Glucose Random 97 mg/dL (60-115); Magnesium 2.2 mg/dL (1.6-2.6); Potassium 3.9 mmol/L (3.3-5.1); Sodium 142 mmol/L (135-145); Total Protein 8.1 g/dL (6.5-8.0)
[2023-11-20 20:03] VITALS: BP 147/74; PULSE 59; RESP 16; O2SAT 99
[2023-11-24 00:34] LABS: A. Phagocytphilium DNA,RT-PCR NOT DETECTED (NOT DETECTED); Babesia Microti DNA, RT-PCR NOT DETECTED (NOT DETECTED); Borrelia Miyamotoi,DNA RT-PCR NOT DETECTED (NOT DETECTED); E.Chaffeensis DNA RT-PCR NOT DETECTED (NOT DETECTED); Lyme(Borrelia ssp)DNA RT-PCR NOT DETECTED (NOT DETECTED)
== END 2023-11-20 20:17 | disposition home or self-care (01) ==
PROVIDERS: Physician Assistant Medical; Emergency Provider Emergency Medicine; PCP Family Medicine
DX: I82.412 Acute embolism and thrombosis of left femoral vein (principal); I82.442 Acute embolism and thrombosis of left tibial vein; Z98.890 Other specified postprocedural states; S10.86XA Insect bite of other specified part of neck, initial encounter; W57.XXXA Bitten or stung by nonvenomous insect and other nonvenomous arthropods, initial encounter; R60.0 Localized edema; Y93.9 Activity, unspecified; Y92.89 Other specified places as the place of occurrence of the external cause; Y99.9 Unspecified external cause status
CPT/HCPCS: 36415; 80053; 83735; 85025; 85610; 85730; 87468; 87469; 87478; 87484; 87798; 93971; 99284

== ENCOUNTER 2023-12-14 12:53 | Outpatient (AMB) | payer OTHER, SELFPAY ==
[2023-12-14 12:54] VITALS: BMI 29.1
--- NOTE | 2023-12-14 12:54 | MHC.OFFVIS ---
Intake Vital Signs 12/14/23 12:54 Height 5 ft 6.5 in Weight 183 lb BMI 29.1 Intake Visit Reasons: PO-Rt knee 11/03/23 DR Larsen Note: Puja is a 63 year old female who presents for a post operative appointment S/P right knee 11/03/23 Patient reports she is doing well she feels like she is improving nicely. She states that she has multiple DVT in the Left leg. She continues to take Eliquis. She does walk 1-2 miles per day for exercise. She has not yet returned to playing pickleball. 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 Thomas continues to do very well after undergoing right knee arthroscopic surgery on 11/03/2023. She will continue to progress to activities as tolerated. She will follow up with me on an as-needed basis should her symptoms worsen in way. Feel free to call me at any time should questions regarding orthopedic management arise. Coding Level of Care Code Global (81262) Diagnoses Primary osteoarthritis of right knee M17.11 Osteoarthritis type: primary
== END 2023-12-14 13:14 | disposition home or self-care (01) ==
PROVIDERS: PCP Family Medicine; Visit Provider Orthopaedic Surgery
DX: M17.11 Unilateral primary osteoarthritis, right knee (principal)
CPT/HCPCS: 99024

== ENCOUNTER → 2023-12-14 12:53 | Outpatient (BNVA) | payer OTHER, SELFPAY | PROVIDERS: PCP Family Medicine; Visit Provider Orthopaedic Surgery ==

== ENCOUNTER → 2024-01-03 15:15 | Outpatient (BNV) | payer OTHER, SELFPAY | PROVIDERS: Visit Provider Radiology Diagnostic Radiology | DX: Z12.31 Encounter for screening mammogram for malignant neoplasm of breast (principal) | CPT/HCPCS: 77063; 77067 ==

== ENCOUNTER 2024-01-03 15:34 | Outpatient (REF) | payer OTHER, SELFPAY | END 2024-01-03 15:35 | disposition home or self-care (01) | LOC: HO.MAMMO 15:34 | PROVIDERS: Visit Provider Family Medicine | DX: Z12.31 Encounter for screening mammogram for malignant neoplasm of breast (principal) | CPT/HCPCS: 77063; 77067 ==

== ENCOUNTER 2024-04-03 14:49 | Outpatient (REF) | payer OTHER, SELFPAY ==
--- NOTE | ~2024-04-03 | US_ITS ---
EXAMINATION: US VENOUS ULTRASOUND WITH DOPPLER LOWER EXTREMITY, LEFT CLINICAL INFORMATION: Leg pain. On Eliquis COMPARISON: Venous duplex Doppler ultrasound exam left lower extremity November 20, 2023. TECHNIQUE: Ultrasound of the deep veins is performed from the hip to the calf with compression sonography and color and pulse Doppler assessment. Spectral analysis with color-flow imaging is performed. FINDINGS: There is normal venous compression and respiratory variation and augmented flow. The visualized common femoral vein, superficial femoral vein, profunda femoral vein, popliteal vein, and the trifurcation region shows no evidence of deep venous thrombosis. Popliteal cyst measuring 5.1 x 1.3 x 2.6 cm. This previously measured 1.9 cm. Morphologically normal-appearing lymph node with fatty vic in the proximal thigh measuring 2.2 x 0.6 x 1.7 cm. If the patient's symptoms persist, followup ultrasound in 5 days 7 days might be of value to exclude proximal propagation from a non-visualized calf vein. US/US venous duplex LE LT IMPRESSION: 1. No DVT demonstrated in the left lower extremity. The previously seen deep vein thrombosis left lower extremity on prior exam November 20, 2023 has resolved. 2. Popliteal fossa cyst.
== END 2024-04-03 14:50 | disposition home or self-care (01) ==
LOC: HO.US 14:49
PROVIDERS: PCP Family Medicine; Visit Provider Family Medicine
DX: I82.402 Acute embolism and thrombosis of unspecified deep veins of left lower extremity (principal); M79.605 Pain in left leg; Z79.01 Long term (current) use of anticoagulants
CPT/HCPCS: 93971

== ENCOUNTER 2024-12-10 08:48 | Outpatient (AMB) | payer OTHER, SELFPAY ==
[2024-12-10 08:51] VITALS: BMI 29.1
--- NOTE | 2024-12-10 08:51 | MHC.OFFVIS ---
Vital Signs 12/10/24 08:51 Height 5 ft 6.5 in Weight 183 lb BMI 29.1 Intake Visit Reasons: Left knee pain Intake Note: Puja is a 64 year old female who presents with complaints of left knee pain. She describes her pain as sharp in nature. Most of the pain is along the anterior aspect of her left knee. She denies any locking or giving way. She did undergo right knee arthroscopic surgery on 11/03/2023. She reports minimal discomfort in her right knee. She has had cortisone injections in the past which gave her no relief. She has also had viscosupplementation injections which gave her fairly good relief. She has tried Tylenol which gives her only mild relief. She is not able to take anti-inflammatory medicines because she is on Eliquis. She wishes to hold off on left knee surgery if at all possible. Allergies No Known Allergies Allergy (Verified 12/10/24 08:51) Medication List - Last Reconciled 12/10/24 by Moe Cutler MD apixaban (Eliquis DVT-PE Treat 30D Start) 5 mg PO BID PFSH Medical History Sacral fracture Rheumatic fever Osteoarthritis Surgical History Surgical history unknown Social History Alcohol intake: current Alcohol type: beer Patient Tobacco Use Status: Never used Tobacco Current occupational status: employed Current occupation: [employer] Physical Exam Vital Signs: BMI result Body Mass Index 29.1 Extrem Other: Left knee examination shows a minimal effusion, mild crepitus with range of motion, no joint line tenderness, negative Amarilys's test, no instability Assessment & Plan Assessment & Plan (1) Left knee pain: Code(s): M25.562 - Pain in left knee Category: Medical (2) Osteoarthritis of left knee: Code(s): M17.12 - Unilateral primary osteoarthritis, left knee Category: Medical Plan Ms. Thomas presents with left knee pain due to osteoarthritis. I had a lengthy discussion with the patient regarding the treatment options. She wishes to hold off on surgery for as long as possible. I agree with this plan. She has not gotten good relief from cortisone injections in the past. She has gotten good relief from viscosupplementation injections. Thus, I will see whether or not her insurance company will cover a viscosupplementation injection for her left knee. I will see her back once the injection is available. Feel free to call me at any time should questions regarding her orthopedic management arise. I spent 20 minutes in reviewing the patient's records and imaging studies, seeing the patient and documenting in the medical record. Orders: Orders XR knee LT 3V Today M25.562 - Pain in left knee Coding Level of Care Code Est Pt Level 3 (53017) Complex EM visit Add On G2211 Diagnoses Left knee pain M25.562 Osteoarthritis of left knee M17.12
--- OUTSIDE RECORDS SUMMARY | 2024-12-10 09:12 | XMS_ITS | Data Portability ---
Author Organization [place] - [facility], Allergy Address [address] [place] [phone] Care Team Providers Care Stable Cleaner Name Role Phone JESSA BOSCH Referring Provider Assessment No assessment recorded. Plan of Treatment Reminders Order Date Submit Date Provider Last Modified By Organization Details Last Modified Time Details Appointments None record ed. Lab None record ed. Referral None record ed. Procedures None record ed. Surgeries None record ed. Imaging None record ed. Medication Orders None record ed. Patient TargetsNo targets recorded. Patient InstructionsNo instructions recorded. Reason for Referral None Reported. Results Created Date Observation Date Name Description Value Unit Range Abnormal Flag Note LastModifiedBy Organization Detail LastModifiedTime 06/21/20 24 audio gram No observ ation record ed. BARCODE Not Available 2023 16:00:07 Result Notes None recorded. Problems Name Problem SNOMED Code Status Onset Date Resolution Date Notes Provider Name and Address Organization Details Recorded Time Sensorineur al hearing loss of bilateral ears 987006806 Active 2023 ANA MARIA TERESA [address], [address], [facility] 4 10:54:16 Bilateral tinnitus 5787647363166 Active 2023 LINDA Luis MD [address], [address], [facility] 4 11:57:56 Problem Notes None recorded. Procedures Surgical History Date Name Laterality Status Provider Name and Address Organization Details Recorded Time 06/21/2024 Comp Audio with Tymps (84036 & 81220) completed ANA MARIA TERESA [address], [address], [facility] - [facility] 06/21/2024 10:52:26 Imaging Results Imaging Date Name Status LastModified by Organiz ation Details LastModified Time 06/21/2024 audiogram completed BARCODE Information no t available 06/21/2024 16:00:07 Procedure Notes None recorded. Medical Equipment None Reported. Medications Name Sig Start Date Stop Date Status Note LastModified by Organization Details LastModified Time oxycodone 5 mg tablet TAKE 1 TABLET BY MOUTH EVERY 6 HOURS NEEDED FOR PAIN *E* active Not Available Not Available No t Available neomycin 3.5 mg/g-polymy sandrine B 10,000 unit/g-dexa meth 0.1 % eye oint APPLY 1 APPLICATION IN BOTH EYES THREE TIMES A DAY X 5 DAYS active Not Available Not Available No t Available Eliquis 5 mg tablet TAKE 1 TABLET BY MOUTH TWICE A DAY active Not Available Not Available No t Available Eliquis DVT-PE Treatment 30-Day Starter 5 mg (74 tablets) in dose pack TAKE DIRECTED IN PACKAGE active Not Available Not Available No t Available Paxlovid 300 mg (150 mg x 2)-100 mg tablets in a dose pack active Not Available Not Available Not Available Vitals Date Recorded Body height Body mass index (BMI) Body weight Provider Name and Address Organization Details Last Updated DateTime 06/21/2024 170.18 cm 28.2 kg/m2 01398.63 g Medina Thomas [place] - [facility] 06/21/2024 11:22:10 Social History None recorded. Functional Status None recorded. Mental Status None recorded. Family History Nothing Reported. Medical History No medical history recorded. Gynecological HistoryNo gynecological history recorded. Obstetrics History GPAL:G 0 P 0 0 0 0 Past Encounters Encounter ID Performer Location Encounter Start Date Encounter Closed Date Diagnosis/Indication Diagnosis SNOMED-CT Code Diagnosis ICD10 Code Diagnosis Note [id number] LINDA ANGULO MD [facility] on [address] [place] [address] 06/21/2024 10:33:11 06/21/2024 11:58:02 Sensorineural hearing loss of bilateral ears 162091045 H90.3 Audiologic al evaluation results:Ri ght ear:{{Norm al sloping* M ild Modera te Moderat maty-severe Severe Pr ofound Nor mal auditory thresholds }} to {{mild* mo derate mod erately-se carlos sever e profound with}} {{sensorin eural hearing loss with* cond uctive hearing loss with mixed hearing loss with}} {{excellen t* good fa ir poor no t measurable }} word recognitio n.Left ear:{{Norm al sloping* M ild Modera te Moderat maty-severe Severe Pr ofound Nor mal auditory thresholds }} to {{mild* mo derate mod erately-se carlos sever e profound with}} {{sensorin eural hearing loss with* cond uctive hearing loss with mixed hearing loss with}} {{excellen t* good fa ir poor no t measurable }} word recognitio n.Tympanom etry:Right Ear:{{Type A* Type As Type Ad Type C Type C, shallow & rounded Ty pe B Type B with large volume Cou ld not maintain a hermetic seal}}Left Ear:{{Type A* Type As Type Ad Type C Type C, shallow & rounded Ty pe B Type B with large volume Cou ld not maintain a hermetic seal}} Bilateral tinnitus 15628 90088 102 H93.13 Ear exam was normal. Audiogram was reviewed. It is unclear if the eliquis is related to her tinnitus. She is off the medication now. We discussed the associatio n between sensorineu ral hearing loss and tinnitus. We discussed masking for tinnitus. We also discussed the [employer] karen and neuro/bio feedback. Health Concerns Section Related Observation LastModified by Organization Detai ls LastModified Time None Recorded Concern Status LastModified by Organization Details LastModified Time None Recorded Advance Directives Directive None Recorded Payers Encounter Date Sequence Insurance Name Policy Number Policy Aranda Covered Member ID Aranda Member ID Guarantor Name 06/21/2024 1 [employer] [place]) [id number] Puja Thomas [id number] Puja Thomas Notes Date Note Type Note Provider Name and Address Organization Details Recorded Time 06/21/2024 text/html Hx of tinnitus since October when she began eliquis due to blood clots after knee surgery. She stopped Eliquis 1 month ago. Her tinnitus is still present but may be slightly less since stopping the medication. LINDA ANGULO MD [address] [place] [address], [phone], [facility] - [facility] 06/21/2024 11:58:55 OBGyn Episode No OBEpisode recorded.
== END 2024-12-10 09:11 | disposition home or self-care (01) ==
PROVIDERS: PCP Family Medicine; Visit Provider Orthopaedic Surgery
DX: M17.12 Unilateral primary osteoarthritis, left knee (principal)
CPT/HCPCS: 99213

== ENCOUNTER 2025-01-08 15:16 | Outpatient (REF) | payer OTHER, SELFPAY ==
--- OUTSIDE RECORDS SUMMARY | 2025-01-08 18:03 | XMS_ITS | Data Portability ---
Author Organization [place] - [facility], Allergy Address [address] [place] [phone] Care Team Providers Care Neon Tube Pumper Name Role Phone JESSA BOSCH Referring Provider [...] Sensorineur al hearing loss of bilateral ears 098061882 Active 2023 ANA MARIA TERESA [address], [address], [facility] 4 10:54:16 Bilateral tinnitus 4982759884377 Active 2023 LINDA Luis MD [address], [address], [facility] 4 11:57:56 Problem Notes None recorded. Procedures Surgical History Date Name Laterality Status Provider Name and Address Organization Details Recorded Time 06/21/2024 Comp Audio with Tymps (81245 & 76256) completed ANA MARIA TERESA [address], [address], [facility] - [facility] 06/21/2024 10:52:26 Imaging Results Imaging Date Name [...] Updated DateTime 06/21/2024 170.18 cm 28.2 kg/m2 93078.63 g Medina Thomas [place] - [facility] 06/21/2024 11:22:10 Social History None recorded. Functional Status None recorded. Mental Status None recorded. Family History Nothing Reported. Medical History No medical history recorded. Gynecological HistoryNo gynecological history recorded. Obstetrics History GPAL:G 0 P 0 0 0 0 Past Encounters Encounter ID Performer Location Encounter Start Date Encounter Closed Date Diagnosis/Indication Diagnosis SNOMED-CT Code Diagnosis ICD10 Code Diagnosis Note [id number] LINDA ANGULO MD [facility] on [address] [place] [address] 06/21/2024 10:33:11 06/21/2024 11:58:02 Sensorineural hearing loss of bilateral ears 025800881 H90.3 Audiologic al evaluation results:Ri ght ear:{{Norm [...] not maintain a hermetic seal}} Bilateral tinnitus 04228 61578 102 H93.13 Ear exam was normal. Audiogram was reviewed. It is unclear if the eliquis is related to her tinnitus. She is off the medication now. We discussed the associatio n between sensorineu ral hearing loss and tinnitus. We discussed masking for tinnitus. We also discussed the [employer] karen and neuro/bio feedback. Health Concerns Section Related Observation LastModified by Organization Detai ls LastModified Time None Recorded Concern Status LastModified by Organization Details LastModified Time None Recorded Advance Directives Directive None Recorded Payers Encounter Date Sequence Insurance Name Policy Number Policy Aranda Covered Member ID Aranda Member ID Guarantor Name 06/21/2024 1 [employer] [place] [id number] Puja Thomas [id number] Puja Thomas Notes Date Note Type Note Provider Name and Address Organization Details Recorded Time 06/21/2024 text/html Hx of tinnitus since October when she began eliquis due to blood clots after knee surgery. She stopped Eliquis 1 month ago. Her tinnitus is still present but may be slightly less since stopping the medication. LINDA ANGULO MD [address] [place] [address], [phone], [facility] - [facility] 06/21/2024 11:58:55 OBGyn Episode No OBEpisode recorded.
== END 2025-01-08 15:17 | disposition home or self-care (01) ==
LOC: HO.MAMMO 15:16
PROVIDERS: PCP Family Medicine; Visit Provider Family Medicine
DX: Z12.31 Encounter for screening mammogram for malignant neoplasm of breast (principal)
CPT/HCPCS: 77063; 77067

== ENCOUNTER → 2025-01-08 15:30 | Outpatient (BNV) | payer OTHER, SELFPAY | PROVIDERS: PCP Family Medicine; Visit Provider Internal Medicine | DX: Z12.31 Encounter for screening mammogram for malignant neoplasm of breast (principal) | CPT/HCPCS: 77063; 77067 ==

== ENCOUNTER 2025-01-21 13:31 | Outpatient (AMB) | payer OTHER, SELFPAY ==
--- NOTE | 2025-01-21 13:34 | MHC.OFFVIS ---
Vital Signs 01/21/25 13:36 Height 5 ft 6.5 in Weight 183 lb BMI 29.1 Intake Visit Reasons: Inj-Left Knee Durolane, Left knee pain Intake Note: Puja is a 65 year old female who presents with complaints of progressively worsening left knee pain. She did undergo right knee arthroscopic surgery on 11/03/2023. She reports mild intermittent discomfort in her right knee. She describes her left knee pain as sharp in nature. She has tried Tylenol which gives only mild relief. She is not able to take anti-inflammatory medicines because she is on Eliquis. She wishes to hold off on left knee surgery for as long as possible. She has had cortisone injections in the past which gave her minimal relief. 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 [employer] Physical Exam Vital Signs: BMI result Body Mass Index 29.1 Const Other: Well-nourished well-developed very friendly female awake alert and oriented x3 in no acute distress Extrem Other: Left knee examination shows a minimal effusion, palpable crepitus with range of motion, with range of motion instability Office Procedures AMB Joint Injection/Aspiration Joint Injection/Aspiration Primary Site: left knee Prep: site was prepped using aseptic technique Injected: 60 mg of (Durolane viscosupplementation) and 1% plain lidocaine Procedure: The patient tolerated the procedure well Coding 51854 - Large joint Procedure code (CPT) selection complete Results Reviewed Results Reviewed: Standing full weight-bearing x-rays of the patient's left knee taken previously show joint space narrowing, subchondral sclerosis, no acute bony abnormalities Assessment & Plan Assessment & Plan (1) Osteoarthritis of left knee: Code(s): M17.12 - Unilateral primary osteoarthritis, left knee Category: Medical (2) Left knee pain: Code(s): M25.562 - Pain in left knee Category: Medical Plan Ms. Thomas presents with left knee pain due to osteoarthritis. I had a lengthy discussion with the patient regarding the treatment options. She wishes to hold off on surgery for as long as possible. I agree with this plan. The risks and benefits of a left knee Durolane viscosupplementation injection were discussed at length with the patient. The patient wished to proceed. She tolerated the injection well. She will continue with her exercise program. She will follow up with me on an as-needed basis should her symptoms not plateau at an unacceptable level over the next few months. Feel free to call me at any time should questions regarding her orthopedic management arise. I spent 21 minutes in reviewing the patient's records and imaging studies, seeing the patient and documenting in the medical record. Orders: Orders AMB Joint Injection/Aspiration Today M17.12 - Unilateral primary osteoarthritis, left knee Coding Level of Care Code Est Pt Level 3 (54796) Complex EM visit Add On G2211 Diagnoses Osteoarthritis of left knee M17.12 Left knee pain M25.562 CPT Codes Coding - 80636 Large joint: 14537 - Large joint ([id number])
[2025-01-21 13:36] VITALS: BMI 29.1
--- OUTSIDE RECORDS SUMMARY | 2025-01-21 16:35 | XMS_ITS | Data Portability ---
Author Organization [place] - [facility], Allergy Address [address] [place] [phone] Care Team Providers Care [place] Health Officer Name Role Phone JESSA BOSCH Referring Provider [...] Sensorineur al hearing loss of bilateral ears 999045082 Active 2023 ANA MARIA TERESA [address], [address], [facility] 4 10:54:16 Bilateral tinnitus 8877620876623 Active 2023 LINDA Luis MD [address], [address], [facility] 4 11:57:56 Problem Notes None recorded. Procedures Surgical History Date Name Laterality Status Provider Name and Address Organization Details Recorded Time 06/21/2024 Comp Audio with Tymps (32695 & 77911) completed ANA MARIA TERESA [address], [address], [facility] - [facility] 06/21/2024 10:52:26 Imaging Results Imaging Date Name [...] Updated DateTime 06/21/2024 170.18 cm 28.2 kg/m2 63036.63 g Medina Thomas [place] - [facility] 06/21/2024 11:22:10 Social History None recorded. Functional Status None recorded. Mental Status None recorded. Family History Nothing Reported. Medical History No medical history recorded. Gynecological HistoryNo gynecological history recorded. Obstetrics History GPAL:G 0 P 0 0 0 0 Past Encounters Encounter ID Performer Location Encounter Start Date Encounter Closed Date Diagnosis/Indication Diagnosis SNOMED-CT Code Diagnosis ICD10 Code Diagnosis Note [id number] LINDA ANGULO MD [facility] on [address] [place] [address] 06/21/2024 10:33:11 06/21/2024 11:58:02 Sensorineural hearing loss of bilateral ears 795991248 H90.3 Audiologic al evaluation results:Ri ght ear:{{Norm [...] not maintain a hermetic seal}} Bilateral tinnitus 13888 74982 102 H93.13 Ear exam was normal. Audiogram was reviewed. It is unclear if the eliquis is related to her tinnitus. She is off the medication now. We discussed the associatio n between sensorineu ral hearing loss and tinnitus. We discussed masking for tinnitus. We also discussed the [employer] karen and neuro/bio feedback. Health Concerns Section Related Observation LastModified by Organization Detai ls LastModified Time None Recorded Concern Status LastModified by Organization Details LastModified Time None Recorded Advance Directives Directive None Recorded Payers Encounter Date Sequence Insurance Name Policy Number Policy Aranda Covered Member ID Aranda Member ID Guarantor Name 06/21/2024 1 [employer]) [id number] Puja Thomas [id number] Puja Thomas Notes Date Note Type Note Provider Name and Address Organization Details Recorded Time 06/21/2024 text/html Hx of tinnitus since October when she began eliquis due to blood clots after knee surgery. She stopped Eliquis 1 month ago. Her tinnitus is still present but may be slightly less since stopping the medication. LINDA NAGULO MD [address] [place] [address], [phone], [facility] - [facility] 06/21/2024 11:58:55 OBGyn Episode No OBEpisode recorded.
== END 2025-01-21 14:01 | disposition home or self-care (01) ==
LOC: HO.HOS 13:32
PROVIDERS: PCP Family Medicine; Visit Provider Orthopaedic Surgery
DX: M17.12 Unilateral primary osteoarthritis, left knee (principal)
CPT/HCPCS: 20610; 99213

== ENCOUNTER → 2025-01-21 13:31 | Outpatient (BNVA) | payer OTHER, SELFPAY | PROVIDERS: PCP Family Medicine; Visit Provider Orthopaedic Surgery | DX: M17.12 Unilateral primary osteoarthritis, left knee (principal) | CPT/HCPCS: 20610; J2003; J7318 ==